=== PATIENT | male | born 1960 | race Caucasian/White ===

== ENCOUNTER → 2017-08-01 | Day surgery (SDC) | payer BC ==
[~2017-08-01] MED LIST: ARTHROTEC EC 71 EACH PO; FENTANYL CITRATE/PF 100MCG/2 ML INJ ONE; LIDOCAINE HCL 2% LOCAL INJ 5 ML SDV VIAL INJ ONE; METOCLOPRAMIDE HCL 10 MG/2ML VIAL ONE; MIDAZOLAM HCL 2 MG/2 ML VIAL ONE; PANTOPRAZOLE 40 MG 10ML VIAL ONE; PANTOPRAZOLE SO40 MG PO; PROPOFOL IV EMULSION 10 MG/ML 50 ML VIAL ONE; TRIBENZOR 40-11 EAC1 PO
--- NOTE | 2017-08-02 12:58 | Operative Report ---
DATE OF PROCEDURE: August 01, 2017 REFERRING PHYSICIAN: Dr. David Orozco. PROCEDURE PERFORMED: Esophagogastroduodenoscopy with esophageal dilatation and biopsies. INDICATIONS FOR PROCEDURE: Dysphagia, odynophagia. 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 MEDICATION: Patient was done under MAC. Please see anesthesiologist's note. PROCEDURE: With patient in the left lateral decubitus position, flexible fiberoptic Olympus gastroscope was introduced into the esophagus under direct visualization without any difficulty. There was some patchy, intense erythema and some friability noted in distal esophagus. There was a mild stricture noted at the GE junction that was traversed with ease with a scope, which was traversed with ease with a scope which was advanced into the stomach. Mucosa overlying the antrum and the body revealed some patchy erythema and mild to moderate edema and biopsies were obtained and sent to stain for H. pylori. Pylorus appeared to be of normal contour and shape. Was intubated with ease and the scope was advanced all the way to the 2nd portion of the duodenum. The scope was then withdrawn slowly. Mucosa overlying the proximal 2nd portion and the duodenal bulb appeared to be within normal limits. The scope was then withdrawn back into the stomach and retroflexed and the mucosa overlying the fundus and the cardia appeared to be within normal limits. The scope was then straightened out. The stomach was decompressed. The previously described esophageal stricture was then dilated to a size 48-[place]. Patient tolerated procedure well. IMPRESSION: 1. Distal esophagitis. 2. Esophageal stricture at gastroesophageal junction dilated to size 48-[place] Young. 3. Gastritis biopsied. Biopsy sent to stain for H. pylori. PLAN: Follow up histology. Initiate Protonix 40 mg 1 p.o. q.a.m. a.c. Job#: [id number] cc:DAVID OROZCO MD
== END | disposition home or self-care (01) ==
LOC: OR 14:30
PROVIDERS: ATTEND Internal Medicine Gastroenterology
DX: K22.2 Esophageal obstruction (principal); C88.4 Extranodal marginal zone B-cell lymphoma of mucosa-associated lymphoid tissue [MALT-lymphoma]; K29.70 Gastritis, unspecified, without bleeding; K20.9 Esophagitis, unspecified; G47.33 Obstructive sleep apnea (adult) (pediatric); I10 Essential (primary) hypertension; Z01.810 Encounter for preprocedural cardiovascular examination
CPT/HCPCS: 43239; 43450; 93005; J2001; J2250; J2765

== ENCOUNTER → 2018-09-27 | Day surgery (SDC) | payer BC ==
[~2018-09-27] MED LIST changes: +HYOSCYAMINE SULFATE 0.5 MG/ML INJ ONE; +IRBESARTAN PO; -LIDOCAINE HCL 2% LOCAL INJ 5 ML SDV VIAL INJ ONE; -METOCLOPRAMIDE HCL 10 MG/2ML VIAL ONE; -PANTOPRAZOLE 40 MG 10ML VIAL ONE; -PROPOFOL IV EMULSION 10 MG/ML 50 ML VIAL ONE
--- OUTSIDE RECORDS SUMMARY | 2018-09-27 07:05 | XMS REPORT | Clinical Summary ---
Author Author [facility] Address Unknown Phone Unavailable Care Team Providers Care Safety Assistant Name Role Phone David Orozco MD PCP Allergies No Known Allergies Medications End Date Status Medication Sig Dispensed Refills Start Date Active VALSARTAN-HYDROCHLOROTHIA Take by mouth 0 ZIDE ORAL daily. Active pantoprazole (PROTONIX) Take 40 mg by 0 40 MG EC tablet mouth daily. 04/22/2018 Discontinued diclofenac Take 1 tablet 0 sodium/misoprostol by mouth (ARTHROTEC 50 ORAL) daily. Active Problems No known active problems Encounters Care Team Description Date Type Specialty Antwan Garcia MD 04/22/2018 Anesthesia General Surgery Event Jimi Martínez MD PLATYSMAPLASTY 04/22/2018 Surgery General Surgery Jimi Martínez MD 04/22/2018 [facility] General Surgery Encounter Jimi Martínez MD Preop testing (Primary Dx) 04/13/2018 Pre-Admit Pre-Admission Testing Testing Appointment after 09/26/2017 Family History Medical History Relation Name Comments Diabetes Mother Heart disease Mother Relation Name Status Comments Father Mother Social History Date Tobacco Use Types Packs/Day Years Used Never Smoker Smokeless Tobacco: Never Used Alcohol Use Drinks/Week oz/Week Comments No Sex Assigned at Date Recorded Not on file Industry Job Start Date Occupation Not on file Not on file Not on file Travel End Travel History Travel Start No recent travel history available. Last Filed Vital Signs Time Taken Vital Sign Reading 04/22/2018 3:00 PM CDT Blood Pressure 127/77 04/22/2018 3:00 PM CDT Pulse 93 04/22/2018 2:38 PM CDT Temperature 36.1 C (97 F) 04/22/2018 3:00 PM CDT Respiratory Rate 16 04/22/2018 3:00 PM CDT Oxygen Saturation 95% - Inhaled Oxygen - Concentration 04/22/2018 6:19 AM CDT Weight 130 kg (285 lb 9.6 oz) 04/22/2018 6:19 AM CDT Height 190.5 cm (6' 3") 04/22/2018 6:19 AM CDT Body Mass Index 35.7 Plan of Treatment Health Maintenance Due Date Last Done Comments COLON CANCER SCREENING 2009 SHINGLES VACCINES (1 of 2009 2) INFLUENZA VACCINE 03/24/2018 Procedures Comments Procedure Name Priority Date/Time Associated Diagnosis IN AN ELECTIVE Routine 04/22/2018 ENDOTRACHEAL AIRWAY 7:58 AM CDT Procedure Note - Antwan Garcia MD - 04/22/2018 7:58 AM CDT Airway Date/Time: 04/22/2018 7:38 AM Performed by: ANTWAN GARCIA Authorized by: ANTWAN GARCIA Location: OR Urgency: Elective Difficult Airway: No Anesthesio logist: ANTWAN GARCIA Performed by: anesthesio logist Preoxygena mark with 100% O2: Yes C-spine Precaution s Maintained Throughout : No Mask Ventilatio n: Difficult mask Final Airway Type: Endotrache al airway Final Endotrache al Airway: ETT Technique Used: Direct laryngosco py Insertion Site: Oral Blade Type: Ansari Laryngosco pe Blade/Vide olaryngosc ope Blade Size: 2 ETT Size (mm): 8.0 Measured from: Teeth ETT to Teeth (cm): 21 Placement Verified by: CO2 detection, direct visualizat ion and equal breath sounds Laryngosco pic view: Grade IIb - view of arytenoids or posterior of glottis only Rapid Sequence Induction (RSI): No Modified RSI: No Number of Attempts at Approach: 1 REVISION, SCAR 04/22/2018 COSMETIC 7:15 AM CDT LIPOSUCTION 04/22/2018 COSMETIC 7:15 AM CDT ABDOMINOPLASTY 04/22/2018 COSMETIC 7:15 AM CDT BROW LIFT, CORONAL 04/22/2018 COSMETIC 7:15 AM CDT RHYTIDECTOMY 04/22/2018 COSMETIC 7:15 AM CDT ECG 12-LEAD Routine 04/13/2018 Preop testing 5:03 PM CDT ZZESTIMATED GFR Routine 04/13/2018 5:02 PM CDT BASIC METABOLIC PANEL Routine 04/13/2018 Preop testing 5:02 PM CDT after 09/26/2017 Results * ECG 12 lead (04/13/2018 5:03 PM CDT) Ventricular rate 88 [facility] Atrial rate 88 [facility] IN interval 158 [facility] QRSD interval 84 [facility] QT interval 334 [facility] QTC interval 404 [facility] P axis 1 48 [facility] QRS axis 1 -29 [facility] T wave axis 26 [facility] EKG impression Normal sinus rhythm-Normal H MUSE ECG-In automated comparison with ECG of 14-OCT-2013 12:22,-No significant change was found- Performing Organization Address City/State/Zipcode Phone Number [facility] [address] [place] [address] * Estimated GFR (04/13/2018 5:02 PM CDT) GFR Non Af Amer 48 (A) mL/min/1.73 m2 [facility] DEPARTMENT OF PATHOLOGY AND GENOMIC MEDICINE GFR Af Amer 58 (A) mL/min/1.73 m2 [facility] DEPARTMENT OF Comment: PATHOLOGY AND Chronic kidney disease: <60 GENOMIC MEDICINE mL/min/1.73m2 Kidney failure: <15 mL/min/1.73m2 The estimated GFR is calculated from the IDMS-traceable Modification of Diet in Renal Disease Equation. The accuracy of the calculation is poor when the creatinine is normal. Calculated values >90 mL/min/1.73m2 are not reported. This equation has not been validated in children (<18 years), women, the elderly (>70 years), or ethnic groups other than Caucasians and Americans. Specimen Plasma specimen Performing Organization Address City/State/Zipcode Phone Number [address] [place] [address] PATHOLOGY AND [employer] MEDICINE * Basic metabolic panel (04/13/2018 5:02 PM CDT) Sodium 143 135 - 148 mEq/L [facility] DEPARTMENT OF PATHOLOGY AND GENOMIC MEDICINE Potassium 4.1 3.5 - 5.0 mEq/L [facility] DEPARTMENT OF PATHOLOGY AND GENOMIC MEDICINE Chloride 103 98 - 112 mEq/L [facility] DEPARTMENT OF PATHOLOGY AND GENOMIC MEDICINE CO2 32 (H) 24 - 31 mEq/L [facility] DEPARTMENT OF PATHOLOGY AND GENOMIC MEDICINE Anion gap 8@ANIO 7 - 15 mEq/L [facility] DEPARTMENT OF PATHOLOGY AND GENOMIC MEDICINE BUN 18 6 - 20 mg/dL [facility] DEPARTMENT OF PATHOLOGY AND GENOMIC MEDICINE Creatinine 1.5 (H) 0.7 - 1.2 mg/dL [facility] DEPARTMENT OF PATHOLOGY AND GENOMIC MEDICINE Glucose 113 (H) 65 - 99 mg/dL [facility] DEPARTMENT OF PATHOLOGY AND GENOMIC MEDICINE Calcium 8.4 8.3 - 10.2 mg/dL [facility] DEPARTMENT OF PATHOLOGY AND GENOMIC MEDICINE Specimen Plasma specimen Performing Organization Address City/State/Zipcode Phone Number [facility] DEPARTMENT [id number] [place] [address] [place] [id number] PATHOLOGY AND GENOMIC MEDICINE after 09/26/2017 Advance Directives Patient has advance care planning documents on file. For more information, cathy pruett contact: Yanick Ortez [address] [place] [address]
[2018-09-27 12:00] VITALS: BP 123/86
--- NOTE | 2018-09-27 12:23 | Operative Report ---
DATE OF PROCEDURE: September 27, 2018 REFERRING PHYSICIAN: Dr. David Orozco. PROCEDURE PERFORMED: Esophagogastroduodenoscopy and biopsy and colonoscopy with polypectomy. INDICATIONS FOR ESOPHAGOGASTRODUODENOSCOPY: History of gastric lymphoma. INDICATIONS FOR COLONOSCOPY: Surveillance colonoscopy, personal history of colon polyps. MEDICATION: Patient was done under MAC. Please see anesthesiologist's note. PROCEDURE: With the patient in the left lateral decubitus position, a flexible fiberoptic Olympus gastroscope was introduced into the esophagus under direct visualization without any difficulty. There was some patchy erythema noted in the distal esophagus. The scope was then advanced with ease into the stomach, traversing a small sliding hiatal hernia. Mucosa overlying the antrum revealed some patchy nodularity and multiple biopsies were obtained. The mucosa overlying the body revealed some diffuse erythema and low-grade to moderate edema and biopsies were obtained and sent to stain for H. pylori. The pylorus was of normal contour and shape, was intubated with ease, and the scope was advanced all the way to the 2nd portion of the duodenum. An approximately 5-mm nodule was noted in the proximal 2nd portion that was biopsied. The duodenal bulb appeared to be within normal limits. The scope was then withdrawn back into the stomach and retroflexed. Mucosa overlying the fundus and the cardia appeared to be within normal limits. The scope was then straightened out. It was subsequently withdrawn. Patient tolerated the procedure well. IMPRESSIONS 1. Distal esophagitis, mild. 2. Small sliding hiatal hernia. 3. Patchy nodularity antrum, biopsies obtained. 4. Approximately 5-mm nodule proximal 2nd portion, biopsied. PLAN: Follow up histology. Initiate Protonix 40 mg 1 p.o. q.a.m. a.c. Patient was then turned around and after adequate lubrication of the anal canal, a flexible fiberoptic Olympus colonoscope was inserted into the rectum with ease and advanced all the way to the cecum. The prep overall was suboptimal with moderate amount of retained fecal material in the left colon. One polyp was snared from the cecum and 1 minute polyp was hot biopsied from the proximal ascending colon and polypectomy site was hemoclipped. The rest of the ascending and the transverse appeared to be within normal limits. One polyp was snared from the proximal descending colon. Some scattered diverticular disease was noted in the distal descending and the sigmoid colon. Three polyps were hot biopsied, 2 polyps were snared from the sigmoid colon, and the rectum appeared to be within normal limits. The scope was then retroflexed into the distal rectum. Small internal hemorrhoids were noted, none of which was actively bleeding. The scope was then straightened out. It was subsequently withdrawn. Patient tolerated the procedure well. IMPRESSIONS 1. Suboptimal prep. 2. Cecal polyps, snared. 3. Ascending colon polyp, hot biopsied, and site hemoclipped. 4. Diverticulosis. 5. Descending colon, polyps snared. 6. Sigmoid colon polyps times 5, 2 snared and 3 hot biopsied. 7. Internal hemorrhoids, none actively bleeding. PLANS: Follow up histology. Initiate high-fiber, low-fat diet. Initiate high-fiber supplement. Patient will need a repeat colonoscopy after a better prep. Job#: [id number] TA cc:DAVID OROZCO MD,
== END | disposition home or self-care (01) ==
LOC: OR 07:03
PROVIDERS: ATTEND Internal Medicine Gastroenterology
DX: K20.8 Other esophagitis (principal); D12.5 Benign neoplasm of sigmoid colon; D12.0 Benign neoplasm of cecum; K29.60 Other gastritis without bleeding; K31.89 Other diseases of stomach and duodenum; K44.9 Diaphragmatic hernia without obstruction or gangrene; K57.30 Diverticulosis of large intestine without perforation or abscess without bleeding; K64.8 Other hemorrhoids; E78.5 Hyperlipidemia, unspecified; B15.9 Hepatitis A without hepatic coma; I10 Essential (primary) hypertension; M19.90 Unspecified osteoarthritis, unspecified site; Z01.810 Encounter for preprocedural cardiovascular examination; Z85.72 Personal history of non-Hodgkin lymphomas; Z68.36 Body mass index [BMI] 36.0-36.9, adult; Z80.0 Family history of malignant neoplasm of digestive organs
CPT/HCPCS: 43239; 45384; 45385; 93005; J1980; J2250; 45378